=== PATIENT | male | born 1960 | race Caucasian/White ===

== ENCOUNTER 2020-05-28 06:42 | Observation (INO) ==
[2020-05-28] MEDS ORDERED: BUPIVACAINE 0.25% 30 ML VIAL ONE (06:44)
[2020-05-28] MEDS ORDERED: LIDOCAINE HCL 1% 20 ML VIAL ONE (06:44)
[2020-05-28] MEDS ORDERED: BACITRACIN INJ 50,000 UNIT VIAL ONE ×2 (06:45→10:52)
[2020-05-28] MEDS ORDERED: CEFAZOLIN 250 MG/ML 1 GM VIAL ONE (07:37)
[2020-05-28] MEDS ORDERED: fentaNYL citrate 100 MCG/2 ML VIAL ONE ×3 (07:37→10:13)
[2020-05-28] MEDS ORDERED: MIDAZOLAM HCL 5 MG/ML 1 ML VIAL ONE ×3 (07:37→10:18)
--- NOTE | 2020-05-28 08:32 | Pre Anesthesia Assessment ---
Date of Service May 28, 2020 Pre Sedation Assessment Vital Signs Temp Pulse Resp BP Pulse Ox 05/28/20 06:51 36.9 C 52 L 20 157/86 H 97 Cardiovascular RRR, no murmur, no edema Respiratory normal respiratory effort, lungs clear to auscultation Pre-Sedation Airway Assessment Smoking Status: Never smoker Short, Thick Neck: No Thyromental Distance: > or= 3.5 Finger Breadths Oral Cavity: + WNL Mallampati Class: III ASA: ASA3 NPO Status Date of Last Intake of Fluids: 05/27/20 Time of Last Intake of Fluids: 20:00 Date of Last Intake of Solid Food: 05/27/20 Time of Last Intake of Solid Foods: 20:00 Procedure Planning Contraindications for Sedation: none Current Medications Reviewed: Yes Notes The planned sedation has been discussed with the patient. Informed Consent was obtained. I have identified the patient, determined the appropriateness of sedation and have assessed the patient immediately prior to the procedure. All medicine(s) and interventions are by my order.
--- NOTE | 2020-05-28 08:32 | History & Physical Bridge Note ---
Date of Service May 28, 2020 History & Physical Bridge Note I have examined the patient, reviewed the History & Physical and in the interval since the performance of the History & Physical I have noted the following changes of clinical significance: no changes noted
--- NOTE | 2020-05-28 11:13 | Post Anesthesia Assessment ---
Date of Service May 28, 2020 Post Sedation Assessment Vital Signs Temp Pulse Resp BP Pulse Ox 05/28/20 06:51 36.9 C 52 L 20 157/86 H 97 Recovery Score Activity: Moves 4 extremities Respiration: Deep Breath/Cough Circulation: +/-20% PreAnes Value Consciousness: Fully Awake Oxygen Saturation: > 92% On Room Air Discharge Sedation Level of Care: Fast Track Phase II Post Sedation Plan On clinical assessment, the patient appears to have tolerated the sedation without complications. Patient is recovering as anticipated. Patient will continue to be monitored by nursing and may be discharged when sedation discharge criteria are met per below protocol. Upon Completions of procedure up to 15 minutes continue every 5 minute vital signs and the P.A.R. score; then discharge to a Phase I or Fast Track to Phase II per the following guidelines: * Discharge Patient to appropriate Phase II area if PAR is 8 or greater or return to pre- procedure baseline. The post - procedure orders will be as directed. * If PAR score is less than 8 or not return to pre-procedure baseline then patient will follow Phase I monitoring till PAR is reached for Phase II. The Phase I may be done in procedure room or may call to secure a Phase I area. * If naloxone or flumazenil are used for reversal, hold in Phase I for continued monitoring from when last reversal dose was given for a minimum of 60 minutes or longer pending the nurse and/or physician discretion of patient condition before discharge to Phase II. Please call the Sedation Physician to re-evaluate and complete post-note for discharge to Phase II area. Do NOT discharge from procedure sedation or Phase 1 until post- sedation evaluation note is complete by procedure /sedation MD Sedation Discharge Instructions to be given to the patient at discharge to home.
[2020-05-28] MEDS ORDERED: ACETAMINOPHEN 325 MG TAB PO PRN (11:14)
[2020-05-28] MEDS ORDERED: OXYCODONE/ACETAMINOPHEN 5mg/325mg TAB PO PRN (11:14)
--- NOTE | 2020-05-28 11:14 | Operative Report ---
Post Operative Report Pre & Post Diagnosis tbs Operation Date: 05/28/20 08:00 <No data on this case meets the specified criteria> I identified the patient and participated in the time-out.: Yes Procedure Operation Date: 05/28/20 08:00 Actual Procedures p Pacer with A/V Leads (Dual) - Milena Dyson DO s Bundle of his Recording - Milena Dyson DO Surgeon Milena Dyson DO Gamma Facilities Operator none Estimated Blood Loss 30 Findings Consistent with Post-Op Diagnosis Specimens none Description of Procedure see official report I attest to the content of the Intraoperative Record and any orders documented therein. Any exceptions are noted below.
[2020-05-28] MEDS ORDERED: CHOLECALCIFEROL 125 MCG PO SCH (11:15)
--- NOTE | 2020-05-28 11:35 | Discharge Summary ---
Date of Service May 29, 2020 Admission HPI Per Admitting Provider pt admitted for elective TBS due to increased fatigue and SOB Admission Exam Per Admitting Provider aaox3, NAD NC/AT, EOMI Supple No JVD Nrl S1/S2, +bradycardiac, No murmur CTA b/l no w/r/r soft nt/nd no LE edema b/l skin intact no focal deficits Principal Diagnosis TBS s/p ppm Discharge Exam aaox3, NAD NC/AT, EOMI Supple No JVD Nrl S1/S2, No murmur CTA b/l no w/r/r soft nt/nd no LE edema b/l skin intact no focal deficits left pectoral incision intact, no hematoma mild ecchymosis Discharge Data Allergies Allergy/AdvReac Type Severity Reaction Status Date / Time No Known Allergies Allergy Unverified 05/28/20 07:02 Procedures Performed Operation Date: 05/28/20 08:00 Actual Procedures p Pacer with A/V Leads (Dual) - Milena Dyson DO s Bundle of his Recording - Milena Dyson DO Ordered Studies ECG: AP-VS CXR: Leads in position PPM Interrogation:Normal lead testing since implant; normal function 05/28/20 06:29 CL Cath Imgs for PACS use only Routine 05/28/20 08:45 EP Lab Images for PACS ONCE Hospital Course (1) Tachy-mary syndrome: (2) PAF (paroxysmal atrial fibrillation): Total Time Total Time Spent Total Time Spent (In Minutes): 40 Total Time Includes: Examination of the Patient, Discharge Planning, Medication Reconciliation and Other Discharge Plan Discharge Items Patient Disposition: Home - Self-Care Reason For Visit: Tachy-Mary Syndrome Discharge Diagnosis: tbs s/p ppm Condition on Discharge: Good Activity: As commented below Activity Comment: do not lift the left elbow over the left shoulder for 1 month Lifting: No more than 10 pounds Lifting Comment: do not lift more than 10 pounds with the left arm for 2 weeks Bathing: Keep incision dry Bathing Comment: keep dressing on and dry until wound check next week Sexual Activity: After two weeks Non-emergency contact: Tennis Coach Call non-emergency contact if: you have any medication questions Follow-up/Referrals: Jyoti Del Valle CRNP [Primary Care Provider] - Diet: Heart Healthy Addtl Attending Provider Instructions: device and wound check next week at [facility] Pending Studies at Discharge: No Stand-Alone Forms: My [facility] Medications and DC Order Prescriptions: Continued atorvastatin 80 mg Tablet 80 mg PO DAILY RF: 0 cyanocobalamin (vitamin B-12) [Vitamin B-12] 2,500 mcg Tablet, Sublingual 2,500 mcg PO DAILY RF: 0 amiodarone 200 mg Tablet 200 mg PO DAILY RF: 0 isosorbide mononitrate 30 mg Tablet Extended Release 24 Hr 30 mg PO DAILY RF: 0 clopidogrel 75 mg Tablet 75 mg PO DAILY RF: 0 pantoprazole 40 mg Tablet,Delayed Release (Dr/Ec) 40 mg PO DAILY RF: 0 hydroxyzine HCl 25 mg Tablet 25 mg PO BID PRN (Reason: Anxiety) RF: 0 metoprolol succinate 25 mg Tablet Extended Release 24 Hr 25 mg PO DAILY RF: 0 ezetimibe 10 mg Tablet 10 mg PO DAILY RF: 0 cholecalciferol (vitamin D3) [Vitamin D3] 125 mcg (5,000 unit) Tablet 125 mcg PO WK RF: 0 Eliquis 5 mg Tablet 5 mg PO BID RF: 0 Trintellix 20 mg Tablet 20 mg PO DAILY RF: 0 Discharge Orders: Discharge Order (Routine); Ordered 05/29/20 Ordered By: Milena Dyson Admission Data Admit Date/Time: 05/28/20 09:25 Attending Provider: Milena Dyson Admit Provider: Milena Dyson Primary Care Provider: Jyoti Del Valle
[2020-05-28] MEDS ORDERED: Nursing to Pharmacy Communication SCH (12:45)
[2020-05-28] MEDS ORDERED: ATORVASTATIN 40 MG TAB PO ONE (13:15)
[2020-05-28] MEDS ORDERED: ISOSORBIDE MONO EXTENDED REL 30 MG TABCR PO ONE (13:15)
[2020-05-28] MEDS ORDERED: CLOPIDOGREL BISULFATE 75 MG TAB PO ONE (13:15)
[2020-05-28] MEDS ORDERED: METOPROLOL SUCC 25MG EXT REL TAB PO ONE (13:15)
[2020-05-28] MEDS ORDERED: AMIODARONE 200 MG TAB PO ONE (13:15)
[2020-05-28] MEDS ORDERED: APIXABAN 5 MG TABLET PO ONE (13:15)
[2020-05-28] MEDS ORDERED: EZETIMIBE 10 MG TABLET PO ONE (13:15)
[2020-05-29 07:37] LABS: Creatinine Clr Calc Pharmacy 74.6 ml/min; Est GFR (African American) 63.9; Est GFR (Non-African American) 55.2
--- NOTE | 2020-05-29 07:51 | XRay Report ---
TWO VIEW CHEST CLINICAL HISTORY: Status post pacemaker implantation. FINDINGS: PA and lateral chest radiographs are obtained. No prior studies are available for compariso n at the time of dictation. The PA view is degraded by apical lordotic positioning. A 2-lead cardiac pacemaker has been placed. Leads project over the right atrial appendage and the right ventricle. The heart is enlarged noting atherosclerotic calcification of the thoracic aorta. The pulmonary vasculat ure is noncongested. There is mild bibasilar atelectasis. No airspace consolidation or pleural effusi on is identified. There is no pneumothorax. The skeletal structures are osteopenic. The bony thorax a ppears intact. IMPRESSION: 1. A 2-lead cardiac pacemaker has been placed as above. No pneumothorax is seen post procedure. 2. Cardiomegaly without radiographic evidence of congestive failure. 3. There is no airspace consolidation or pleural effusion. ACT 112: Negative or not required by law. Electronically signed by: Shailesh Vigil M.D. 05/29/2020 7:50 AM
[2020-05-29] MEDS ORDERED: APIXABAN 5 MG TABLET PO SCH (09:00)
[2020-05-29] MEDS ORDERED: NON-FORMULARY MEDICATION (Vortioxetine [Trintellix] 20 MG) PO SCH (09:00)
[2020-05-29] MEDS ORDERED: AMIODARONE 200 MG TAB PO SCH (09:00)
[2020-05-29] MEDS ORDERED: CLOPIDOGREL BISULFATE 75 MG TAB PO SCH (09:00)
[2020-05-29] MEDS ORDERED: ISOSORBIDE MONO EXTENDED REL 30 MG TABCR PO SCH (09:00)
[2020-05-29] MEDS ORDERED: ATORVASTATIN 40 MG TAB PO SCH (09:00)
[2020-05-29] MEDS ORDERED: EZETIMIBE 10 MG TABLET PO SCH (09:00)
[2020-05-29] MEDS ORDERED: METOPROLOL SUCC 25MG EXT REL TAB PO SCH (09:00)
[2020-05-29] MEDS ORDERED: PANTOprazole 40 MG TAB PO SCH (09:00)
--- NOTE | 2020-05-29 12:04 | Electrocardiogram Report ---
Test Reason : Blood Pressure : / mmHG Vent. Rate : 060 BPM Atrial Rate : 060 BPM P-R Int : 220 ms QRS Dur : 100 ms QT Int : 460 ms P-R-T Axes : 028 -08 012 degrees QTc Int : 460 ms Atrial-paced rhythm with prolonged AV conduction Nonspecific ST and T wave abnormality Prolonged QT Abnormal ECG No previous ECGs available Confirmed by Karlo Kimball ([id number]) on 05/29/2020 12:04:00 PM Referred By: Milena Dyson Confirmed By:Karlo Kimball
--- NOTE | 2020-05-29 12:43 | Electrocardiogram Report ---
Test Reason : Blood Pressure : / mmHG Vent. Rate : 063 BPM Atrial Rate : 063 BPM P-R Int : 208 ms QRS Dur : 118 ms QT Int : 470 ms P-R-T Axes : 054 012 014 degrees QTc Int : 480 ms AV dual-paced rhythm with Premature atrial complexes with Aberrant conduction Abnormal ECG When compared with ECG of 29-MAY-2020 08:09, (unconfirmed) Electronic ventricular pacemaker has replaced Electronic atrial pacemaker Confirmed by Karlo Kimball ([id number]) on 05/29/2020 12:42:46 PM Referred By: Milena Dyson Confirmed By:Karol Kimball
--- NOTE | 2020-06-06 10:59 | Operative Report (OR) ---
DATE OF OPERATION: 05/28/2020 PREOPERATIVE DIAGNOSIS: Tachybrady syndrome. POSTOPERATIVE DIAGNOSIS: Tachybrady syndrome. PROCEDURE: Dual chamber rate responsive permanent pacemaker under fluoroscopic guidance along with intracardiac electrogram mapping of the His bundle region (the RV lead is in the left bundle position). SURGEON: Milena Dyson DO. ASSISTANTS: None. ANESTHESIA: Monitored conscious sedation administered under my supervision by Sophia Sultana. Start time 8:53, end time 11:10. Total of 9 mg of Versed, 275 mcg of fentanyl. IV FLUIDS: 60 mL. ANTIBIOTICS: 3 grams of Ancef. CONTRAST: 25 mL. URINE OUTPUT: Not applicable. SPECIMENS: None. FINDINGS: See below. DRAINS: None. BLOOD LOSS: 20 mL. INDICATIONS: This is a 59-year-old gentleman who has a past medical history for paroxysmal atrial fibrillation which was initially diagnosed in 10/2018. He is on a calcium channel samy and Xarelto. He is status post cardioversion in 11/2018 and was started on sotalol with another cardioversion in 12/2018 as well as a history of PVI and CTI line in 06/2019 at [facility]. He is on amiodarone and Eliquis now because he had recurrent AFib and a cardioversion in 02/2019. He has family history of coronary artery disease with his brother and father all had stents and incomplete right bundle branch block. Coronary artery disease with a cath in 12/2018, he has had a PCI to the RCA. A repeat cath in 08/2019 showed that the stent was fine. He recently wore a Zio patch which revealed evidence of tachybrady syndrome, so he is recommended a dual chamber pacemaker. CONSENT: Consent was obtained prior to the patient going into Electrophysiology Lab. The patient was informed of risks, benefits and alternative procedure. Risks include but not limited to sudden cardiac ; cardiac arrhythmia; cerebrovascular accident; myocardial infarction; injury to the blood vessels, chamber of the heart, lung; bleeding and infection. The patient understood these risks and agreed with procedure as planned. Informed consent was obtained. DESCRIPTION OF THE PROCEDURE: The patient was brought into Electrophysiology Lab in a fasting state. He was connected to continuous cardiac monitoring. A timeout was performed to ensure patient identity and procedure correctly. The patient was prepped and draped over the left infraclavicular space in normal surgical standard fashion. Monitored conscious sedation was given throughout the procedure for the patient's comfort level. [place] precautions maintained throughout the procedure. A 10 mL of 1% lidocaine, bupivacaine mixture were given in the left deltopectoral groove. Incision was made in left deltopectoral groove and blunt dissection performed down to identify cephalic vein. Cephalic vein was identified and isolated using 0 silk ties. The vein was nicked with 11 blade and a guidewire was inserted without any resistance. An 8-Albanian sheath was inserted over the guidewire without any resistance. Dilator was removed and a second guidewire was inserted through the 8-Albanian sheath to allow for retained venous access. Sheath was removed and a preformed His catheter sheath was advanced into the right ventricle over a Glidewire and the Glidewire and dilator removed and then the lead was advanced into the sheath and intracardiac electrogram mapping was performed to identify the His signal. The AH was 160 milliseconds, the HV was 50 milliseconds. I then went into NAYAK 30 in left with a His catheter. With this His is located and then marked another on the x-ray monitor 2 cm down from an imaginary line extending to the apex of the heart, I then positioned the catheter in this general area 2 cm below the His bundle making the catheter foreshortened by counter clocking it. Then I went into MOHAWK 30 and tried to make sure that the catheter was positioned on the septum prior to then giving some series of short few turns to screw the lead into the septum. As I was screwing it into the septum, I watched the electrograms specifically in V1 and watched that turn into a right bundloid morphology as well as stim QRS peak in the lateral leads. Then I gave a puff of contrast through the sheath to see that I was up against the septum. I noticed that the sheath was not as much against the septum as I would have liked. I did reposition the lead once and I had adequate pacing and sensing thresholds and, although not ideal left bundle, it was capturing the septum enough to be nice functioning RV lead that would activate the septum. The sheath was then slit under fluoroscopic guidance. I left the short 8-Albanian sheath in while I repositioned the right atrial lead. The 8-Albanian sheath was advanced over the second guidewire. The guidewire and dilator removed. Right atrial lead was advanced into right atrium and positioned interatrial appendage under fluoroscopic guidance. There was adequate pacing and sensing thresholds and no diaphragmatic segments in high output pacing. Of note, this lead ended up dislodging as I was closing the pocket, so I had to reopen the pocket and reposition this lead. The 8-Albanian sheath was peeled away and lead was fixated to pectoralis muscle using 0 silk suture. Next, I then slit the 8-Albanian sheath over the left bundle lead and fixated that lead to the pectoralis muscle. Then, a pacemaker pocket was created using blunt dissection over the pectoralis muscle within the pectoralis fascia. Pocket was flushed with copious amounts of bacitracin saline wash and inspected for hemostasis. The pulse generator was then attached to the leads making sure the pins were in appropriate position, passed set screws and set screws were all tightened. Pulse generator was then placed in the pocket making sure that the leads were lying flat beneath the device and the device was secured to the pectoralis muscle using 0 silk suture. As I was closing, I noticed there was some ventricular ectopy and when I went on for, I saw that a right atrial lead had dislodged, so I reopened up the pocket. I was only on my 2-0 Vicryl first layer and repositioned the right atrial lead. Then the incision was closed in 3-layer fashion using 2-0 Vicryl interrupted suture, followed by 3-0 Vicryl interrupted suture, followed by 0 Monocryl running stitch and Dermabond was applied followed then by a Telfa and micropore dressing. EQUIPMENT: 1. Pulse generator is a Dynamic Signal Kristine XT DR EILEEN Adams [id number], serial number [id number]. 2. Right atrial lead: Medtronic 5076-52 cm, serial number [id number]. 3. Right ventricular lead: Medtronic 3830-69 cm, serial number [id number]. INTRAOPERATIVE TESTIN. Right atrial lead: P waves 3 millivolts, impedance 629 ohms, threshold 0.3 volts at 0.4 milliseconds. 2. Right ventricular lead: R waves 8 millivolts, impedance 1058 ohms, threshold 0.75 volts at 0.4 milliseconds. FINAL MEASUREMENTS THROUGH THE DEVICE: 1. Right atrial lead: P waves 1.4 millivolts, impedance 684 ohms, threshold 0.75 volts at 0.4 milliseconds. 2. Right ventricular lead: R waves 8.6 millivolts, impedance 969 ohms, threshold 0.5 volts at 0.4 milliseconds. FINAL PARAMETERS: MVP-R 60/130, right atrial amplitude 3.5 volts, pulse width 0.4 milliseconds, sensitivity 0.3 millivolts. Right ventricular amplitude 3.5 volts, pulse width 0.4 milliseconds, sensitivity 1.2 millivolts. IMPRESSION: Successful dual chamber rate responsive permanent pacemaker (right ventricular lead is positioned to the left bundle region) under fluoroscopic guidance along with intracardiac electrogram mapping of the His bundle region secondary to tachybrady syndrome. PLAN: Monitor the patient overnight, 12-lead ECG, chest x-ray. He is not allowed to lift the left elbow or left shoulder for 1 month. He cannot lift more than 10 pounds with the left arm for 2 weeks and he will follow up in our office for device and wound check in 1 week's time and he needs to keep the dressing on and dry until then. I attest to the content of the Intraoperative Record and any orders documented therein. Any exceptions are noted below. JOHNATHAN
== END 2020-05-29 13:49 | disposition home or self-care (01) ==
LOC: EP 06:42 → 2S 06:42